=== PATIENT | female | born 1930 | race Caucasian/White ===

== ENCOUNTER 2019-11-23 13:10 | Emergency (ER) | payer OTHER, BC ==
[~2019-11-23] VITALS: Ht 160 cm; Wt 63.5 kg
[2019-11-23 14:37] VITALS: BP 141/62
== END 2019-11-23 14:37 | disposition home or self-care (01) ==
LOC: ER 13:10
DX: S61.422A Laceration with foreign body of left hand, initial encounter (principal); I10 Essential (primary) hypertension; W01.0XXA Fall on same level from slipping, tripping and stumbling without subsequent striking against object, initial encounter; Y93.89 Activity, other specified; Y92.89 Other specified places as the place of occurrence of the external cause; Y99.8 Other external cause status